=== PATIENT | female | born 1990 | race Caucasian/White ===

== ENCOUNTER 2017-02-14 21:55 | Emergency (ER) | payer OTHER ==
[~2017-02-14] VITALS: Ht 170.2 cm; Wt 72.6 kg
--- NOTE | ~2017-02-14 | CR20 ---
[facility] A Service of [facility] RADIOLOGY TEXT RESULTS PATIENT: THAD AMES LOCATION: [facility] : [birth year] UNIT #: [id number] AGE: [address]: Stephan Hackett MD SEX: F ORDER DR: [id number] [facility] [address] [place], [place] [address] [id number] MR#: [id number] Acc #: [id number] NAME: THAD AMES : 1990 SEX: F STUDY DATE/TIME: 02/14/2017 22:07 UNIT: [facility] ROOM: STUDY DESCRIPTION: CR Ankle Min 3 Views Lt Attending Physician: Stephan Hackett M.D. Ordering Physician: Ed Jorge Yusuf M.D. Primary Care Physician: Jeni Hernandez M.D. MEDICAL IMAGING REPORT This report is preliminary unless electronic signature is present EXAM Left ankle series. INDICATIONS Left ankle pain and swelling today after fall. PROCEDURE Three views of the left ankle. COMPARISON None. FINDINGS Generalized soft tissue swelling. No fracture. No dislocation. IMPRESSION Generalized soft tissue swelling of the ankle. No acute bone injury. Dictated by... Tapan Holly M.D. THIS IS AN ELECTRONICALLY VERIFIED REPORT Tapan Holly M.D. at 02/19/2017 8:57 AM MER/jasen TD: 02/15/2017 09:39 JOB #: [id number] MEDICAL IMAGING REPORT Page 1 of 1 COPY
== END 2017-02-14 23:25 | disposition home or self-care (01) ==
LOC: CED 21:55
DX: S93.402A Sprain of unspecified ligament of left ankle, initial encounter (principal); X50.1XXA Overexertion from prolonged static or awkward postures, initial encounter
CPT/HCPCS: 29405; 73610; 99283